=== PATIENT | male | born 1985 | race Caucasian/White ===

== ENCOUNTER 2023-01-16 16:07 | Emergency (ER) | payer BC ==
[~2023-01-16] VITALS: Ht 167.6 cm; Wt 70.3 kg
[2023-01-16] MEDS ORDERED: TDAP [DIPH/PERTUSSIS/TET] 0.5 ML VIAL IM ONE ×2 (16:30→16:35)
[2023-01-16] MEDS ORDERED: LIDOCAINE 1%-EPI 1:100,000 20 ML VIAL ONE (17:14)
[2023-01-16] MEDS ORDERED: CEPHALEXIN MONOHYDRATE 500 MG CAPSULE PO ONE ×2 (19:30→19:36)
[2023-01-16] MEDS ORDERED: TRAM50TA2 PO (20:02)
[2023-01-16] MEDS ORDERED: CEPH500T PO (20:02)
[2023-01-16] MEDS ORDERED: IBUP-1955 PO (20:02)
[2023-01-16 20:10] VITALS: BP 111/69; TEMP 98.1; O2SAT 100
== END 2023-01-16 20:10 | disposition home or self-care (01) ==
LOC: ER 16:10
DX: S51.822A Laceration with foreign body of left forearm, initial encounter (principal); S61.217A Laceration without foreign body of left little finger without damage to nail, initial encounter; Z79.899 Other long term (current) drug therapy; Z60.2 Problems related to living alone; W25.XXXA Contact with sharp glass, initial encounter; W45.8XXA Other foreign body or object entering through skin, initial encounter; Y93.89 Activity, other specified; Y92.099 Unspecified place in other non-institutional residence as the place of occurrence of the external cause; Y99.8 Other external cause status
CPT/HCPCS: 12004; 12032; 73090; 73130; 90471; 90715; 99285; A6403; J3490